=== PATIENT | female | born 1945 | race Native Hawaiian/Other Pacific Islander ===

== ENCOUNTER 2017-03-11 23:51 | Emergency (ER) | payer BC, MEDICARE ==
[2017-03-12 00:22] VITALS: PULSE 72; RESP 16; TEMP 97.6; O2SAT 98
--- NOTE | 2017-03-12 01:04 | ED PDOC ---
HPI: Female Pain Time Seen by Provider: 03/12/17 00:41 Chief Complaint (Nursing): Female Genitourinary Chief Complaint (Provider): dysuria History Per: Patient History/Exam Limitations: no limitations Onset/Duration Of Symptoms: Days (3) Current Symptoms Are (Timing): Still Present Quality Of Discomfort: Burning Additional History Per: Patient Additional Complaint(s): 71 y/o female presents with dysuria x 3 days. Associated increased urgency. Denies fever, nausea/vomiting, abdominal pain, back pain, hematuria. Past Medical History Reviewed: Historical Data, Nursing Documentation, Vital Signs Vital Signs: Last Vital Signs Temp 97.6 F 03/12/17 00:16 Pulse 72 03/12/17 00:16 Resp 16 03/12/17 00:16 BP 184/56 H 03/12/17 00:16 Pulse Ox 98 03/12/17 00:16 - Medical History PMH: HTN - Family History Family History: States: Unknown Family Hx - Home Medications Home Medications: Ambulatory Orders Medication Instructions Recorded Nitrofurantoin Macrocrystals 100 mg PO BID #13 cap 03/12/17 [Macrobid] Phenazopyridine HCl [Pyridium] 100 mg PO TID PRN #5 tab 03/12/17 - Allergies Allergies/Adverse Reactions: Allergies Allergy/AdvReac Type Severity Reaction Status Date / Time nitrous oxide Allergy RASH Verified 03/18/16 23:09 Thiazides Allergy RASH Verified 03/18/16 23:09 walnut Allergy RASH Verified 03/18/16 23:09 Review of Systems ROS Statement: Except As Marked, All Systems Reviewed And Found Negative Genitourinary Female: Positive for: Dysuria Physical Exam - Reviewed Nursing Documentation Reviewed: Yes Vital Signs Reviewed: Yes - Physical Exam Appears: Positive for: Well, Non-toxic, No Acute Distress Head Exam: Positive for: ATRAUMATIC, NORMAL INSPECTION, NORMOCEPHALIC Skin: Positive for: Normal Color Eye Exam: Positive for: Normal appearance ENT: Positive for: Normal ENT Inspection Cardiovascular/Chest: Positive for: Regular Rate, Rhythm Respiratory: Positive for: Normal Breath Sounds Gastrointestinal/Abdominal: Positive for: Normal Exam Back: Positive for: Normal Inspection Extremity: Positive for: Normal ROM Neurologic/Psych: Positive for: Alert, Oriented - ECG O2 Sat by Pulse Oximetry: 98 - Progress ED Course And Treament: udip, u/a, [facility] Patient educated on findings, discharged with rx pyridium, macrobid (doses given in ED) ADvised follow up PMD 2-3 days. Fluids. Return precautions given. Disposition - Clinical Impression Clinical Impression: Urinary tract infection - Patient ED Disposition Is Patient to be Admitted: No Counseled Patient/Family Regarding: Studies Performed, Diagnosis, Need For Followup, Rx Given - Disposition Referrals: Tanner Trnih MD [Primary Care Provider] - Disposition: Routine/Home Disposition Time: 02:18 Condition: IMPROVED Prescriptions: Nitrofurantoin Macrocrystals [Macrobid] 100 mg PO BID #13 cap Phenazopyridine HCl [Pyridium] 100 mg PO TID PRN #5 tab PRN Reason: Urinary Discomt Instructions: Urinary Tract Infection in Women (ED) Forms: [facility] ([place]ic)
[2017-03-12 01:49] LABS: URINE BACTERIA FEW (<OCC); URINE BILIRUBIN NEGATIVE (NEGATIVE); URINE BLOOD MODERATE (NEGATIVE); URINE CLARITY TURBID (Clear); URINE COLOR AMBER (YELLOW); URINE GLUCOSE (UA) NEG (Normal); URINE LEUKOCYTE ESTERASE LARGE Leu/uL (Negative); URINE NITRATE NEGATIVE (NEGATIVE); URINE PROTEIN 30 mg/dL (NEGATIVE); URINE UROBILINOGEN 0.2-1.0 mg/dL (0.2-1.0)
[2017-03-12 02:17] VITALS: BP 151/69
== END 2017-03-12 02:41 | disposition home or self-care (01) ==
LOC: H.ER 23:51
DX: N39.0 Urinary tract infection, site not specified (principal); I10 Essential (primary) hypertension